=== PATIENT | female | born 1995 | race Two or more races ===

== ENCOUNTER 2017-03-11 21:27 | Emergency (ER) | payer BC ==
--- NOTE | ~2017-03-11 | EKG ---
PATIENT: MATTHEW WALKER UNIT #: [id number] Ventricular Rate: 59 BPM Atrial Rate: 59 BPM P-R Interval: 126 ms QRS Duration: 84 ms Q-T Interval: 408 ms QTC Calculation(Bezet): 403 ms P [place]: -7 degrees Calculated R [place]: 74 degrees Calculated T [place]: 61 degrees Diagnosis Line: Sinus bradycardia with Premature atrial complexes Diagnosis Line: Otherwise normal ECG Diagnosis Line: No previous ECGs available Diagnosis Line: Confirmed by RACHEL WILLIAMSON MD ([id number]) on Diagnosis Line: 03/12/2017 9:55:20 PM INTERPRETING MD: MARGO
[2017-03-11 22:16] LABS: BASOPHIL% 0.5 % (0-2.5); EOSINOPHIL# 0.1 X10e3 (0-0.7); EOSINOPHIL% 1.4 % (0.0-7.0); HEMATOCRIT 33.1 % (35.0-45.0); HEMOGLOBIN 10.8 gm/dL (12.0-16.0); LYMPHOCYTE# 3.4 X10e3 (1.0-3.5); LYMPHOCYTE% 66.6 % (17.0-45.0); MEAN CELL VOLUME 84.2 FL (83-96); MEAN CORPUSCULAR HEMOGLOBIN 27.5 PG (28-34); MEAN CORPUSCULAR HGB CONC 32.7 g/dL (30-36); MEAN PLATELET VOLUME 8.3 FL (6.5-11.5); MONOCYTE# 0.4 X10e3 (0-1.0); MONOCYTE% 7.5 % (3.0-12.0); NEUTROPHIL# 1.2 X10e3 (1.5-7.1); PLATELET COUNT 231 X10e3 (140-420); RED BLOOD COUNT 3.93 X10e (3.90-5.30); RED CELL DISTRIBUTION WIDTH 15.4 % (11.0-15.5); WHITE BLOOD COUNT 5.2 X10e3 (4.0-10.5)
[2017-03-11 22:18] LABS: DIFF IND YES
[2017-03-11 22:23] LABS: URINE APPEARANCE CLEAR; URINE BILIRUBIN NEG (NEG); URINE BLOOD NEG (NEG); URINE COLOR YELLOW; URINE GLUCOSE NEG (NEG); URINE KETONE NEG (NEG); URINE LEUKOCYTE ESTERASE NEG (NEG); URINE NITRATE NEG (NEG); URINE PROTEIN NEG (NEG); URINE SPECIFIC GRAVITY 1.009 (1.003-1.035); URINE UROBILINOGEN 0.2 MG/DL (NEG)
[2017-03-11 22:25] LABS: CULTURE INDICATED? NO; URINE SOURCE CLEAN CATCH
[2017-03-11 22:27] LABS: ALBUMIN SERUM 3.9 g/dL (3.5-5.0); ALKALINE PHOSPHATASE 70 U/L (32-92); ALT (SGPT) 10 U/L (10-40); AST (SGOT) 17 U/L (10-42); BILIRUBIN,TOTAL 0.4 mg/dL (0.2-2.0); BLOOD UREA NITROGEN 8 mg/dL (9-23); CALCIUM SERUM 8.8 mg/dL (8.4-10.2); CARBON DIOXIDE 25 mmol/L (22-31); CHLORIDE 106 mmol/L (100-111); CREATININE SERUM 0.4 mg/dL (0.6-1.4); GLUCOSE FASTING 97 mg/dL (70-110); POTASSIUM 3.7 mmol/L (3.5-5.1); PROTEIN TOTAL SERUM 6.8 g/dL (6.0-8.3); SODIUM 138 mmol/L (135-145)
[2017-03-11 22:29] LABS: BILIRUBIN, DIRECT <0.1 mg/dL (0.0-0.2); BILIRUBIN,INDIRECT 0.3 mg/dL (0.0-0.9)
[2017-03-11 22:41] LABS: ANISOCYTOSIS SL; PLATELET ESTIMATE NORMAL (NORMAL)
== END 2017-03-11 23:08 | disposition home or self-care (01) ==
LOC: CED 21:27
PROVIDERS: Emergency Medicine
DX: R55 Syncope and collapse (principal)
CPT/HCPCS: 36415; 80048; 80076; 81003; 84703; 85025; 93005; 99283; 99284